=== PATIENT | female | born 2005 | race Caucasian/White ===

== ENCOUNTER 2024-11-01 03:36 | Emergency (ER) | payer BC, OTHER ==
[~2024-11-01] VITALS: Ht 157.5 cm; Wt 104.3 kg
[2024-11-01 03:36] VITALS: TEMP 99.1
[2024-11-01 04:09] LABS: BASOPHILS % 0.3 % (0.0-1.0); EOSINOPHILS % 0.6 % (0.0-6.0); LYMPHOCYTES % 33.6 % (18.0-39.1); MONOCYTES % 6.9 % (4.4-11.3); NEUTROPHILS % 58.3 % (38.7-80.0); RED CELL DISTRIBUTION WIDTH 12.8 % (11.7-14.4)
[2024-11-01 04:30] LABS: EST GLOMERULAR FILTRATION RATE 115.0 ML/MIN (>=60)
[2024-11-01 04:45] VITALS: PULSE 90; RESP 17
[2024-11-01 05:01] VITALS: BP 110/70; O2SAT 98
== END 2024-11-01 05:01 | disposition home or self-care (01) ==
LOC: ER 03:39
DX: R06.00 Dyspnea, unspecified (principal); R07.89 Other chest pain
CPT/HCPCS: 36415; 71045; 80053; 84484; 85025; 85379; 93005; 99284